=== PATIENT | female | born 1985 | race Two or more races ===

== ENCOUNTER 2017-03-07 09:25 | Inpatient (IN) | payer BC ==
[2017-03-07] MEDS ORDERED: Carboprost Tromethamine 250 MCG/1 ML Amp IM PRN (11:44)
[2017-03-07] MEDS ORDERED: Lidocaine 1% 50 ML MDV INJECT PRN (11:44)
[2017-03-07] MEDS ORDERED: Butorphanol 1 MG/ML SDV IVPUSH PRN (11:44)
[2017-03-07] MEDS ORDERED: Water For Irrigation,Sterile 1,000 ML Container IRR PRN (11:44)
[2017-03-07] MEDS ORDERED: Sodium Chloride 0.9% 10 ML Syringe FLUSH PRN (11:44)
[2017-03-07] MEDS ORDERED: Sodium Chloride 0.9% 2.5 ML Syringe FLUSH PRN (11:44)
[2017-03-07] MEDS ORDERED: Nalbuphine 10 MG/1 ML Vial IVPUSH PRN (11:44)
[2017-03-07] MEDS ORDERED: Misoprostol 200 MCG Tab PO PRN (11:44)
[2017-03-07] MEDS ORDERED: Methylergonovine 0.2 MG/1 ML Amp IM PRN (11:44)
[2017-03-07] MEDS ORDERED: Terbutaline 1 MG/ML SDV SUBCUT PRN (11:49)
[2017-03-07] MEDS ORDERED: Oxytocin/0.9 % Sodium Chloride 30 UNIT/500 ML BAG IV SCH (12:00)
[2017-03-07] MEDS: Lactated Ringers 1,000 ML IV SCH ×2 (12:15→13:52)
[2017-03-07] MEDS ORDERED: ePHEDrine 50 MG/ML SDV ONE (13:41)
[2017-03-07] MEDS ORDERED: Ropivacaine 0.2% 2 MG/ML 20 ML SDV ONE (13:42)
[2017-03-07] MEDS ORDERED: fentaNYL 100 MCG/2 ML SDV ONE (13:42)
[2017-03-07] MEDS ORDERED: Ropivacaine HCl/PF 100 ML ONE (13:42)
--- NOTE | 2017-03-07 14:24 | PCM.PRNOTE ---
- Free Text/Narrative Note: Called for a labor epidural for patient c/o labor pain. Patient identified and history reviewed. Discussed procedure and risks including bleeding, infection, nerve pain, nerve damage and unsuccessful epidural. Patient agrees. Sitting up, sterile betadine prep times 3 and sterile drape. 1% lidocaine SQ at L4 #25 Touhy advanced KRISTYN saline to approximately 5 cm. Catheter easily advanced to 10cm. No heme no paresthesia. Test dose 3 ml 1.5% lidocaine with epinephrine 1: 200,000. negative reaction. Bolus of fentanyl 100 mcg given with 3 ml 0.2% ropivicaine. ropivicaine bolus x1 of 2ml. Total 5 ml bolus.Patient reports pain relief after 2 contractions. Level noted to be T10 Epidural drip of 0.2% ropivicaine and Fentanyl 2 mcg/ml started at 8 ml/hr PCEA bolus of 4 ml every 20 minutes. Pt tolerated well pain score 7/10 to 2/10.
--- NOTE | 2017-03-07 14:27 | PCM.PREANE ---
Preanesthetic Assessment - Procedure Proposed Procedure: labor epidural - Anesthesia/Transfusion/Family Hx Anesthesia History: Prior Anesthesia Without Reaction (lasik, wisdom teeth) Family History of Anesthesia Reaction: No - Review of Systems General: No Symptoms Pulmonary: No Symptoms Cardiovascular: No Symptoms Gastrointestinal: No Symptoms Neurological: Other (hx of lower back pain on right) Other: Reports: None - Physical Assessment Pulse: 79 O2 Sat by Pulse Oximetry: 98 Respiratory Rate: 20 Blood Pressure: 112/73 Height: 1.57 m Weight: 62.596 kg ASA Class: 2 Mental Status: Alert & Oriented x3 Dentition: Reports: Normal Dentition Thyro-Mental Finger Breadths: 3 Mouth Opening Finger Breadths: 4 Lungs: Clear to Auscultation, Normal Respiratory Effort Cardiovascular: Regular Rate, Regular Rhythm - Lab Values: Laboratory Last Values WBC 6.85 K/uL (4.0-11.0) 03/07/17 12:09 RBC 4.09 M/uL (4.30-5.90) L 03/07/17 12:09 Hgb 11.5 g/dL (12.0-16.0) L 03/07/17 12:09 Hct 34.6 % (36.0-46.0) L 03/07/17 12:09 MCV 84.6 fL (80.0-98.0) 03/07/17 12:09 MCH 28.1 pg (27.0-32.0) 03/07/17 12:09 MCHC 33.2 g/dL (31.0-37.0) 03/07/17 12:09 RDW Std Deviation 41.4 fl (28.0-62.0) 03/07/17 12:09 RDW Coeff of Shantanu 14 % (11.0-15.0) 03/07/17 12:09 Plt Count 164 K/uL (150-400) 03/07/17 12:09 MPV 10.10 fL (7.40-12.00) 03/07/17 12:09 Nucleated RBC % 0.0 /100WBC 03/07/17 12:09 Nucleated RBCs # 0 K/uL 03/07/17 12:09 INR 0.94 (0.86-1.11) 03/07/17 12:09 APTT 31.4 SEC (18.6-31.3) H 03/07/17 12:09 Fibrinogen 491 mg/dL (215-411) H 03/07/17 12:09 Blood Type O POSITIVE 03/07/17 12:09 Antibody Screen NEGATIVE 03/07/17 12:09 - Allergies Allergies/Adverse Reactions: Allergies Allergy/AdvReac Type Severity Reaction Status Date / Time No Known Allergies Allergy Verified 05/21/14 15:05 - Blood Blood Available: Yes Product(s) Available: PRBC - Anesthesia Plan Pre-Op Medication Ordered: None - Acknowledgements Anesthesia Type Planned: Epidural Pt an Appropriate Candidate for the Planned Anesthesia: Yes Alternatives and Risks of Anesthesia Discussed w Pt/Guardian: Yes Pt/Guardian Understands and Agrees with Anesthesia Plan: Yes PreAnesthesia Questionnaire - CURRENT (IN HOUSE) MEDS Current Meds: Current Medications Butorphanol Tartrate (Stadol) 1 mg IVPUSH Q1H PRN PRN Reason: Pain Carboprost Tromethamine (Hemabate Ds) 250 mcg IM ASDIRECTED PRN PRN Reason: Post Hemorrhage Lactated Ringer's (Ringers, Lactated) 1,000 mls @ 150 mls/hr IV ASDIRECTED NITA Last Admin: 03/07/17 13:52 Dose: 999 mls/hr Oxytocin/Sodium Chloride (Oxytocin 30 Unit/500 Ml-Ns) 30 unit in 500 mls @ 2 mls/hr IV TITRATE NITA; 2 MUNITS/MIN PRN Reason: Protocol Last Admin: 03/07/17 12:24 Dose: 2 munits/min, 2 mls/hr Lidocaine HCl (Xylocaine 1%) 50 ml INJECT .ONCE PRN PRN Reason: Laceration repair Methylergonovine Maleate (Methergine) 0.2 mg IM ASDIRECTED PRN PRN Reason: Post Hemorrhage Misoprostol (Cytotec) 200 mcg PO .ONCE PRN PRN Reason: Post Hemorrhage Nalbuphine HCl (Nubain) 10 mg IVPUSH Q1H PRN PRN Reason: Pain (severe 7-10) Sodium Chloride (Saline Flush) 10 ml FLUSH ASDIRECTED PRN PRN Reason: Keep Vein Open Sodium Chloride (Saline Flush) 2.5 ml FLUSH ASDIRECTED PRN PRN Reason: Keep Vein Open Sterile Water (Sterile Water For Irrigation) 1,000 ml IRR ASDIRECTED PRN PRN Reason: delivery Terbutaline Sulfate (Brethine) 0.25 mg SUBCUT ASDIRECTED PRN PRN Reason: Tacysystole Discontinued Medications Ephedrine Sulfate (Ephedrine Sulfate) Confirm Administered Dose 50 mg .ROUTE .STK-MED ONE Stop: 03/07/17 13:42 Fentanyl (Sublimaze) Confirm Administered Dose 300 mcg .ROUTE .STK-MED ONE Stop: 03/07/17 13:43 Ropivacaine (Naropin 0.2%) Confirm Administered Dose 100 mls @ as directed .ROUTE .STK-MED ONE Stop: 03/07/17 13:43 Ropivacaine (Naropin 0.2%) Confirm Administered Dose 20 ml .ROUTE .STK-MED ONE Stop: 03/07/17 13:43
[2017-03-07] MEDS ORDERED: Ibuprofen 800 MG Tab PO PRN (20:14)
[2017-03-07] MEDS ORDERED: Ibuprofen 400 MG Tab PO PRN (20:14)
[2017-03-07] MEDS ORDERED: Acetaminophen 500 MG Tab PO PRN ×2 (20:14)
[2017-03-07] MEDS ORDERED: Docusate Sodium 100 MG Cap PO PRN (20:14)
[2017-03-07] MEDS ORDERED: Witch Hazel Medicated Pads 40/Jar TOP PRN (20:14)
[2017-03-07] MEDS ORDERED: Lanolin 100% Cream 7 GM Tube TOP PRN (20:14)
[2017-03-07] MEDS ORDERED: Bisacodyl 10 MG Supp RECTAL PRN (20:14)
[2017-03-07] MEDS ORDERED: oxyCODONE 5 MG Tab PO PRN (20:14)
[2017-03-07] MEDS ORDERED: Benzocaine/Menthol 20%-0.5% Spray 78 GM Cannister TOP PRN (20:14)
--- NOTE | 2017-03-08 06:30 | PCM.PNPP ---
- General Info Date of Service: 03/08/17 Admission Dx/Problem (Free Text): 32 yo P2 s/p , PPD1 Subjective Update: Patient seen at bedside , denies any complains . Normal lochia Functional Status: Reports: Pain Controlled, Tolerating Diet, Ambulating, Urinating - Review of Systems General: Reports: No Symptoms HEENT: Reports: No Symptoms Pulmonary: Reports: No Symptoms Cardiovascular: Reports: No Symptoms Gastrointestinal: Reports: No Symptoms Genitourinary: Reports: No Symptoms Musculoskeletal: Reports: No Symptoms Skin: Reports: No Symptoms Neurological: Reports: No Symptoms Psychiatric: Reports: No Symptoms - General Info Date of Service: 03/08/17 - Patient Data Vital Signs - Most Recent: Last Vital Signs Temp Pulse 79 03/07/17 14:27 Resp 20 03/07/17 14:27 BP 112/73 03/07/17 14:27 Pulse Ox 98 03/07/17 14:27 Weight - Most Recent: 62.596 kg Lab Results - Last 24 Hours: Laboratory Results - last 24 hr 03/07/17 03/07/17 03/07/17 Range/Units 12:09 12:09 12:09 WBC 6.85 (4.0-11.0) K/uL RBC 4.09 L (4.30-5.90) M/uL Hgb 11.5 L (12.0-16.0) g/dL Hct 34.6 L (36.0-46.0) % MCV 84.6 (80.0-98.0) fL MCH 28.1 (27.0-32.0) pg MCHC 33.2 (31.0-37.0) g/dL RDW Std Deviation 41.4 (28.0-62.0) fl RDW Coeff of Shantanu 14 (11.0-15.0) % Plt Count 164 (150-400) K/uL MPV 10.10 (7.40-12.00) fL Nucleated RBC % 0.0 /100WBC Nucleated RBCs # 0 K/uL INR 0.94 (0.86-1.11) APTT 31.4 H (18.6-31.3) SEC Fibrinogen 491 H (215-411) mg/dL Blood Type O POSITIVE Antibody Screen NEGATIVE 03/07/17 03/07/17 03/08/17 Range/Units 18:56 18:56 06:16 WBC 8.12 (4.0-11.0) K/uL RBC 3.81 L (4.30-5.90) M/uL Hgb 10.7 L 10.3 L (12.0-16.0) g/dL Hct 32.6 L 31.0 L (36.0-46.0) % MCV 85.6 (80.0-98.0) fL MCH 28.1 (27.0-32.0) pg MCHC 32.8 (31.0-37.0) g/dL RDW Std Deviation 42.6 (28.0-62.0) fl RDW Coeff of Shantanu 14 (11.0-15.0) % Plt Count 138 L (150-400) K/uL MPV 9.80 (7.40-12.00) fL Nucleated RBC % 0.0 /100WBC Nucleated RBCs # 0 K/uL INR 0.98 (0.86-1.11) APTT 32.7 H (18.6-31.3) SEC Fibrinogen 454 H (215-411) mg/dL Blood Type Antibody Screen Med Orders - Current: Current Medications Acetaminophen (Tylenol Extra Strength) 500 mg PO Q4H PRN PRN Reason: Pain Acetaminophen (Tylenol Extra Strength) 1,000 mg PO Q4H PRN PRN Reason: Pain Benzocaine/Menthol (Dermoplast Pain Relief 20%-0.5% [place]) 78 gm TOP ASDIRECTED PRN PRN Reason: Perineal Comfort Measure Bisacodyl (Dulcolax) 10 mg RECTAL .ONCE PRN PRN Reason: Constipation Carboprost Tromethamine (Hemabate Ds) 250 mcg IM ASDIRECTED PRN PRN Reason: Post Hemorrhage Docusate Sodium (Colace) 100 mg PO BID PRN PRN Reason: Constipation Emollient Ointment (Lansinoh Hpa) 0 gm TOP ASDIRECTED PRN PRN Reason: Sore Nipples Lactated Ringer's (Ringers, Lactated) 1,000 mls @ 150 mls/hr IV ASDIRECTED NITA Last Admin: 03/07/17 13:52 Dose: 999 mls/hr Oxytocin/Sodium Chloride (Oxytocin 30 Unit/500 Ml-Ns) 30 unit in 500 mls @ 2 mls/hr IV TITRATE NITA; 2 MUNITS/MIN PRN Reason: Protocol Last Titration: 03/07/17 18:00 Dose: 1 munits/min, 1 mls/hr Ibuprofen (Motrin) 400 mg PO Q4H PRN PRN Reason: Pain Ibuprofen (Motrin) 800 mg PO Q6H PRN PRN Reason: Pain Lidocaine HCl (Xylocaine 1%) 50 ml INJECT .ONCE PRN PRN Reason: Laceration repair Methylergonovine Maleate (Methergine) 0.2 mg IM ASDIRECTED PRN PRN Reason: Post Hemorrhage Misoprostol (Cytotec) 200 mcg PO .ONCE PRN PRN Reason: Post Hemorrhage Oxycodone HCl (Oxycodone) 5 mg PO Q2H PRN PRN Reason: Pain Sodium Chloride (Saline Flush) 10 ml FLUSH ASDIRECTED PRN PRN Reason: Keep Vein Open Sodium Chloride (Saline Flush) 2.5 ml FLUSH ASDIRECTED PRN PRN Reason: Keep Vein Open Sterile Water (Sterile Water For Irrigation) 1,000 ml IRR ASDIRECTED PRN PRN Reason: delivery Terbutaline Sulfate (Brethine) 0.25 mg SUBCUT ASDIRECTED PRN PRN Reason: Tacysystole [place] (Tucks) 1 pad TOP ASDIRECTED PRN PRN Reason: comfort care Discontinued Medications Butorphanol Tartrate (Stadol) 1 mg IVPUSH Q1H PRN PRN Reason: Pain Ephedrine Sulfate (Ephedrine Sulfate) Confirm Administered Dose 50 mg .ROUTE .STK-MED ONE Stop: 03/07/17 13:42 Fentanyl (Sublimaze) Confirm Administered Dose 300 mcg .ROUTE .STK-MED ONE Stop: 03/07/17 13:43 Ropivacaine (Naropin 0.2%) Confirm Administered Dose 100 mls @ as directed .ROUTE .STK-MED ONE Stop: 03/07/17 13:43 Nalbuphine HCl (Nubain) 10 mg IVPUSH Q1H PRN PRN Reason: Pain (severe 7-10) Ropivacaine (Naropin 0.2%) Confirm Administered Dose 20 ml .ROUTE .STK-MED ONE Stop: 03/07/17 13:43 - Infant Interaction Infant Disposition, : at Bedside Infant Interaction: Holding Support Person: - Recovery Exam Fundal Tone: Firm Fundal Level: At Umbilicus Fundal Placement: Midline Lochia Amount: Moderate Lochia Color: Rubra/Red Episiotomy/Laceration: Approximated Bladder Status: Voiding Urinary Elimination: Voided - Exam General: Alert Lungs: Clear to Auscultation, Normal Respiratory Effort Cardiovascular: Regular Rate, Regular Rhythm GI/Abdominal Exam: Normal Bowel Sounds Extremities: Normal Inspection Psy/Mental Status: Alert - Problem List & Annotations (1) Vaginal delivery SNOMED Code(s): 344048346 Code(s): O80 - ENCOUNTER FOR FULL-TERM UNCOMPLICATED DELIVERY Status: Acute Current Visit: Yes - Problem List Review Problem List Initiated/Reviewed/Updated: Yes - My Orders Last 24 Hours: My Active Orders 03/07/17 11:44 Patient Status [ADT] Routine Heart Tones [RC] CONTINUOUS Non Stress Test [RC] PER UNIT ROUTINE Notify Provider [RC] PRN Vaginal Exam [RC] PRN Vital Signs [RC] PER UNIT ROUTINE Carboprost Tromethamine [Hemabate DS] 250 mcg IM ASDIRECTED PRN Lidocaine 1% [Xylocaine 1%] 50 ml INJECT .ONCE PRN Methylergonovine [Methergine] 0.2 mg IM ASDIRECTED PRN Misoprostol [Cytotec] 200 mcg PO .ONCE PRN Sodium Chloride 0.9% [Saline Flush] 10 ml FLUSH ASDIRECTED PRN Sodium Chloride 0.9% [Saline Flush] 2.5 ml FLUSH ASDIRECTED PRN Water For Irrigation,Sterile [Sterile Water for Irrigation] 1,000 ml IRR ASDIRECTED PRN Peripheral IV Insertion Adult [OM.PC] Routine Resuscitation Status Routine 03/07/17 11:45 Lactated Ringers [Ringers, Lactated] 1,000 ml IV ASDIRECTED 03/07/17 11:49 Bedrest Bathroom Privileges [RC] ASDIRECTED Communication Order [RC] ASDIRECTED Communication Order [RC] ASDIRECTED Notify Provider [RC] PRN Oxygen Therapy [RC] ASDIRECTED Vaginal Exam [RC] PRN Vital Signs [RC] PER UNIT ROUTINE Terbutaline [Brethine] 0.25 mg SUBCUT ASDIRECTED PRN 03/07/17 12:00 Oxytocin/0.9 % Sodium Chloride [Oxytocin 30 Unit/500 ML-NS] 30 unit in 500 ml IV TITRATE Medication Administration Instruction [OM.PC] Q3H 03/07/17 20:14 Patient Status [ADT] Routine May Shower [RC] ASDIRECTED Up ad Peyton [RC] ASDIRECTED Vital Signs [RC] PER UNIT ROUTINE Acetaminophen [Tylenol Extra Strength] 1,000 mg PO Q4H PRN Acetaminophen [Tylenol Extra Strength] 500 mg PO Q4H PRN Benzocaine/Menthol [Dermoplast Pain Relief 20%-0.5% [place]] 78 gm TOP ASDIRECTED PRN Bisacodyl [Dulcolax] 10 mg RECTAL .ONCE PRN Docusate Sodium [Colace] 100 mg PO BID PRN Ibuprofen [Motrin] 400 mg PO Q4H PRN Ibuprofen [Motrin] 800 mg PO Q6H PRN Lanolin [Lansinoh HPA] See Dose Instructions TOP ASDIRECTED PRN [place] [Tucks] 1 pad TOP ASDIRECTED PRN oxyCODONE 5 mg PO Q2H PRN Assess Lochia [WOMSER] Per Unit Routine Assess Uterine Involution [WOMSER] Per Unit Routine Peripheral IV Discontinue [OM.PC] Routine - Assessment Assessment:: 32 yo P2 s/p , PPD1 , stable - Plan Plan:: Continue regular diet Pain control Discharge home today
--- NOTE | 2017-03-08 13:53 | OR ---
SURGEON: DARWIN CHIN DATE OF PROCEDURE: 03/07/2017 PREOPERATIVE DIAGNOSES: 1. A 32-year-old 3, para 1-0-1-1, at 38 weeks and 6 days, admitted for induction of labor secondary to third trimester bleeding. 2. Group B Streptococcus is negative. POSTOPERATIVE DIAGNOSES: 1. Status post spontaneous vaginal delivery. 2. Placental abruption. 3. Group B Streptococcus is negative. ESTIMATED BLOOD LOSS: 300. ANESTHESIA: Epidural. FINDINGS: A live male delivered at 1909, weight was 3,410 grams, score was 8 and 9. Three-vessel cord was noted. On inspection of the placenta, there was about 5-10% abruption. A second-degree laceration was repaired also. HISTORY: The patient is a 32-year-old, G3, P1-0-1-1 at 38 weeks and 6 days, who presented to the triage complaining of vaginal spotting and bleeding that soaked a pad. The patien , reported decreased movement. As a result, the patient was examined and found to have some mild spotting in the posterior vaginal fornix. The heart tones was Category 1. The patient was examined and found to be 2 cm dilated. As a result, patient was kept for induction of labor, and serial coags were done. The patient had the Roldan bulb placed. After the Roldan bulb, patient was 3 cm dilated. The patient was then reevaluated and found to be 5 cm dilated, 50% effaced, and -2 station. AROM was done, which showed bloody fluid. Subsequently, the patient became fully dilated. PROCEDURE IN DETAIL: When patient was fully dilated, the patient was encouraged to push. The patient had good pushing effort, and delivered the head, followed by the anterior shoulder and then the posterior shoulder, followed by the body. The was then placed on the abdomen of the mother and suctioned cleaned. The cord was clamped x2, and the placenta was then delivered, and a gush of blood was noted with the delivery of the placenta. The uterus was then massaged. The perineum was inspected and assessed to have a second-degree laceration, which was sutured with 2-0 Caprosyn. The perineum was then inspected again and found to be hemostatic.The instrument and pad counts were correct x2. ABA LANCASTER /[id number] LYDIA
[2017-03-08 20:17] VITALS: BP 100/62
== END 2017-03-08 22:05 | disposition home or self-care (01) | DRG 560 ==
LOC: MW.OBCHECK 09:25 → MW.OB 09:28 → MW.OBCHECK 11:44 → OBSVTOIN 19:09 → MW.OB 23:30
PROVIDERS: ADMIT Obstetrics & Gynecology; ATTEND Obstetrics & Gynecology
PROC: 10E0XZZ Delivery of Products of Conception, External Approach (ICD-10-PCS; principal; 2017-03-07)
PROC: 0U7C7ZZ Dilation of Cervix, Via Natural or Artificial Opening (ICD-10-PCS; 2017-03-07)
PROC: 3E0P3VZ Introduction of Hormone into Female Reproductive, Percutaneous Approach (ICD-10-PCS; 2017-03-07)
PROC: 0KQM0ZZ Repair Perineum Muscle, Open Approach (ICD-10-PCS; 2017-03-07)
PROC: 10907ZC Drainage of Amniotic Fluid, Therapeutic from Products of Conception, Via Natural or Artificial Opening (ICD-10-PCS; 2017-03-07)
DX: O45.93 Premature separation of placenta, unspecified, third trimester (principal); O70.1 Second degree perineal laceration during delivery; Z3A.38 38 weeks gestation of pregnancy; Z37.0 Single live birth
CPT/HCPCS: 01967; 36415; 59025; 59409; 85014; 85018; 85027; 85384; 85610; 85730; 86850; 86900; 86901; 88307; J2590; J7120

== ENCOUNTER 2017-04-18 07:00 | Emergency (ER) | payer BC ==
[2017-04-18] MEDS ORDERED: Sodium Chloride 0.9% 1,000 ML IV ONE (07:22)
[2017-04-18] MEDS ORDERED: Sodium Chloride 0.9% 2.5 ML Syringe FLUSH PRN (07:22)
[2017-04-18] MEDS ORDERED: Morphine 2 MG/ML Syringe IVPUSH ONE ×2 (07:22→09:36)
[2017-04-18] MEDS ORDERED: Ondansetron 4 MG/2 ML SDV IVPUSH ONE (07:22)
[2017-04-18] MEDS ORDERED: Sodium Chloride 0.9% 10 ML Syringe FLUSH PRN (07:22)
--- NOTE | 2017-04-18 07:58 | EDM.PDOC ---
ED HPI GENERAL MEDICAL PROBLEM - General Chief Complaint: Abdominal Pain Stated Complaint: ABD PAIN Time Seen by Provider: 04/18/17 07:15 Source of Information: Reports: Patient History Limitations: Reports: No Limitations - History of Present Illness INITIAL COMMENTS - FREE TEXT/NARRATIVE: History of present illness: []Patient ate a large meal last night at 7 PM and then drinks soda which she normally doesn't and shortly experienced right-sided abdominal pain. Pain radiating around her right upper flank and was cramping. She was able to sleep last night but awoke early to feed her baby and the pain began again. She denies any vomiting but feels nauseated. Review of systems: As per history of present illness and below otherwise all systems reviewed and negative. Past medical history: As per history of present illness and as reviewed below otherwise noncontributory. Surgical history: As per history of present illness and as reviewed below otherwise noncontributory. Social history: No reported history of drug or alcohol abuse. Family history: As per history of present illness and as reviewed below otherwise noncontributory. Physical exam: General: Well developed, well nourished in NAD HEENT: Atraumatic, normocephalic, pupils reactive, negative for conjunctival pallor or scleral icterus, mucous membranes moist, throat clear, neck supple, nontender, trachea midline. Lungs: Clear to auscultation, breath sounds equal bilaterally, chest nontender. Heart: S1S2, regular, negative for clicks, rubs, or JVD. Abdomen: Soft, nondistended, nontender. Negative for masses or hepatosplenomegaly. Negative for costovertebral tenderness. Pelvis: Stable nontender. Genitourinary: Deferred. Rectal: Deferred. Extremities: Atraumatic, negative for cords or calf pain. Neurovascular unremarkable. Neuro: Awake, alert, oriented. Cranial nerves II through XII unremarkable. Cerebellum unremarkable. Motor and sensory unremarkable throughout. Exam nonfocal. Diagnostics: []Labs normal ultrasound gallbladder shows cholelithiasis no signs of cholecystitis Therapeutics: []IV hydration and morphine Zofran for pain and nausea Impression: []Cholelithiasis Plan: []Follow-up with general surgeon, [place] and Zofran for pain and nausea. Return if symptoms worsen or change. Definitive disposition and diagnosis as appropriate pending reevaluation and review of above. Right Lower Abdomen Pain Score (Numeric/FACES): 10 - Related Data Allergies Allergy/AdvReac Type Severity Reaction Status Date / Time No Known Allergies Allergy Verified 04/18/17 07:11 Home Meds: Home Meds . 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 - Infectious Disease History Infectious Disease History: Reports: Chicken Pox, Measles - Past Surgical History HEENT Surgical History: Reports: LASIK, Other (See Below) Other HEENT Surgeries/Procedures: wisdom teeth extraction Social & Family History - Family History Cardiac: Reports: Hypertension Respiratory: Reports: Asthma : Reports: Renal Calculus Neurological: Reports: CVA Endocrine/Metabolic: Reports: Diabetes, Type I Oncologic: Reports: Breast - Tobacco Use Smoking Status *Q: Never Smoker Second Hand Smoke Exposure: No - Caffeine Use Caffeine Use: Reports: Soda Other Caffeine Use: occasional Caffeine Use Comment: rare - Recreational Drug Use Recreational Drug Use: No ED ROS GENERAL - Review of Systems Review Of Systems: See Below (See history of present illness) ED EXAM, GI/ABD - Physical Exam Exam: See Below (See history of present illness) Course - Vital Signs Last Recorded V/S: Last Vital Signs Temp 97.3 F 04/18/17 07:07 Pulse 74 04/18/17 08:44 Resp 16 04/18/17 08:44 BP 114/64 04/18/17 08:44 Pulse Ox 97 04/18/17 08:44 - Orders/Labs/Meds Orders: Active Orders 24 hr Category Date Time Status Abdomen Ltd [US] Stat Exams 04/18/17 08:31 Taken Sodium Chloride 0.9% [Saline Flush] Med 04/18/17 07:22 Active 10 ml FLUSH ASDIRECTED PRN Sodium Chloride 0.9% [Saline Flush] Med 04/18/17 07:22 Active 2.5 ml FLUSH ASDIRECTED PRN Saline Lock Insert [OM.PC] Stat Oth 04/18/17 07:21 Ordered Medication Orders Sodium Chloride (Saline Flush) 10 ml FLUSH ASDIRECTED PRN PRN Reason: Keep Vein Open Sodium Chloride (Saline Flush) 2.5 ml FLUSH ASDIRECTED PRN PRN Reason: Keep Vein Open Labs: Laboratory Tests 04/18/17 04/18/1704/18/17 Range/Units 07:30 07:30 07:45 WBC 7.85 (4.0-11.0) K/uL RBC 5.13 (4.30-5.90) M/uL Hgb 14.2 (12.0-16.0) g/dL Hct 42.0 (36.0-46.0) % MCV 81.9 (80.0-98.0) fL MCH 27.7 (27.0-32.0) pg MCHC 33.8 (31.0-37.0) g/dL RDW Std Deviation 42.0 (28.0-62.0) fl RDW Coeff of Shantanu 14 (11.0-15.0) % Plt Count 168 (150-400) K/uL MPV 10.00 (7.40-12.00) fL Neut % (Auto) 65.8 (48.0-80.0) % Lymph % (Auto) 27.0 (16.0-40.0) % [place] % (Auto) 6.0 (0.0-15.0) % Eos % (Auto) 1.1 (0.0-7.0) % Baso % (Auto) 0.1 (0.0-1.5) % Neut # (Auto) 5.2 (1.4-5.7) K/uL Lymph # (Auto) 2.1 (0.6-2.4) K/uL [place] # (Auto) 0.5 (0.0-0.8) K/uL Eos # (Auto) 0.1 (0.0-0.7) K/uL Baso # (Auto) 0.0 (0.0-0.1) K/uL Nucleated RBC % 0.0 /100WBC Nucleated RBCs # 0 K/uL Sodium (136-146) mmol/L Potassium (3.5-5.1) mmol/L Chloride (98-110) mmol/L Carbon Dioxide (21-31) mmol/L BUN (6.0-23.0) mg/dL Creatinine (0.6-1.5) mg/dL Est Cr Clr Drug Dosing mL/min Estimated GFR (MDRD) ml/min Glucose (60-110) mg/dL Calcium (8.8-10.8) mg/dL Total Bilirubin (0.1-1.5) mg/dL AST (5-40) IU/L ALT (8-54) IU/L Alkaline Phosphatase (40-150) Total Protein (6.0-8.0) g/dL Albumin (3.5-5.0) g/dL Globulin (2.0-3.5) g/dL Albumin/Globulin Ratio (1.3-2.8) Lipase (7-80) U/L Urine Color YELLOW Urine Appearance SLT CLOUDY Urine pH 7.0 (5.0-8.0) Ur Specific [place] 1.015 (1.001-1.035) Urine Protein NEGATIVE (NEGATIVE) mg/dL Urine Glucose (UA) NEGATIVE (NEGATIVE) mg/dL Urine Ketones NEGATIVE (NEGATIVE) mg/dL Urine Occult Blood TRACE-INTACT (NEGATIVE) Urine Nitrite NEGATIVE (NEGATIVE) Urine Bilirubin NEGATIVE (NEGATIVE) Urine Urobilinogen 0.2 (<2.0) EU/dL Ur Leukocyte Esterase TRACE (NEGATIVE) Urine RBC 0-3 (0-2/HPF) Urine WBC 0-3 (0-5/HPF) Ur Epithelial Cells OCCASIONAL (NONE-FEW) Urine Bacteria FEW (NEGATIVE) Urine HCG, Qual NEGATIVE (NEGATIVE) 04/18/17 Range/Units 07:45 WBC (4.0-11.0) K/uL RBC (4.30-5.90) M/uL Hgb (12.0-16.0) g/dL Hct (36.0-46.0) % MCV (80.0-98.0) fL MCH (27.0-32.0) pg MCHC (31.0-37.0) g/dL RDW Std Deviation (28.0-62.0) fl RDW Coeff of Shantanu (11.0-15.0) % Plt Count (150-400) K/uL MPV (7.40-12.00) fL Neut % (Auto) (48.0-80.0) % Lymph % (Auto) (16.0-40.0) % [place] % (Auto) (0.0-15.0) % Eos % (Auto) (0.0-7.0) % Baso % (Auto) (0.0-1.5) % Neut # (Auto) (1.4-5.7) K/uL Lymph # (Auto) (0.6-2.4) K/uL [place] # (Auto) (0.0-0.8) K/uL Eos # (Auto) (0.0-0.7) K/uL Baso # (Auto) (0.0-0.1) K/uL Nucleated RBC % /100WBC Nucleated RBCs # K/uL Sodium 137 (136-146) mmol/L Potassium 4.0 (3.5-5.1) mmol/L Chloride 104 (98-110) mmol/L Carbon Dioxide 21 (21-31) mmol/L BUN 11 (6.0-23.0) mg/dL Creatinine 0.7 (0.6-1.5) mg/dL Est Cr Clr Drug Dosing 92.94 mL/min Estimated GFR (MDRD) > 60.0 ml/min Glucose 129 H (60-110) mg/dL Calcium 9.9 (8.8-10.8) mg/dL Total Bilirubin 0.4 (0.1-1.5) mg/dL AST 17 (5-40) IU/L ALT 18 (8-54) IU/L Alkaline Phosphatase 103 (40-150) Total Protein 8.3 H (6.0-8.0) g/dL Albumin 4.6 (3.5-5.0) g/dL Globulin 3.7 H (2.0-3.5) g/dL Albumin/Globulin Ratio 1.2 L (1.3-2.8) Lipase 24 (7-80) U/L Urine Color Urine Appearance Urine pH (5.0-8.0) Ur Specific [place] (1.001-1.035) Urine Protein (NEGATIVE) mg/dL Urine Glucose (UA) (NEGATIVE) mg/dL Urine Ketones (NEGATIVE) mg/dL Urine Occult Blood (NEGATIVE) Urine Nitrite (NEGATIVE) Urine Bilirubin (NEGATIVE) Urine Urobilinogen (<2.0) EU/dL Ur Leukocyte Esterase (NEGATIVE) Urine RBC (0-2/HPF) Urine WBC (0-5/HPF) Ur Epithelial Cells (NONE-FEW) Urine Bacteria (NEGATIVE) Urine HCG, Qual (NEGATIVE) Meds: Medications Generic Name Dose Route Start Last Admin Trade Name Freq PRN Reason Stop Dose Admin Sodium Chloride 10 ml 04/18/17 07:22 Saline Flush FLUSH ASDIRECTED PRN Keep Vein Open Sodium Chloride 2.5 ml 04/18/17 07:22 Saline Flush FLUSH ASDIRECTED PRN Keep Vein Open Discontinued Medications Generic Name Dose Route Start Last Admin Trade Name [place] PRN Reason Stop Dose Admin Sodium Chloride 1,000 mls @ 999 mls/hr 04/18/17 07:22 04/18/17 07:51 Normal Saline IV 04/18/17 08:22 999 mls/hr .Bolus ONE Administration Morphine Sulfate 2 mg 04/18/17 07:22 04/18/17 07:51 Morphine IVPUSH 04/18/17 07:23 2 mg ONETIME ONE Administration Ondansetron HCl 4 mg 04/18/17 07:22 04/18/17 07:51 Zofran IVPUSH 04/18/17 07:23 4 mg ONETIME ONE Administration Departure - Departure Time of Disposition: 09:39 Disposition: Home, Self-Care 01 Condition: Good Clinical Impression: Cholelithiasis Qualifiers: Cholelithiasis location: gallbladder Cholecystitis presence: without cholecystitis Biliary obstruction: without biliary obstruction Qualified Code(s) : K80.20 - Calculus of gallbladder without cholecystitis without obstruction - Discharge Information Referrals: Nic Huynh [Primary Care Provider] - Forms: ED Department Discharge Additional Instructions: The following information is given to patients seen in the emergency department who are being discharged to home. This information is to outline your options for follow-up care. We provide all patients seen in our emergency department with a follow-up referral. The need for follow-up, as well as the timing and circumstances, are variable depending upon the specifics of your emergency department visit. If you don't have a primary care physician on staff, we will provide you with a referral. We always advise you to contact your personal physician following an emergency department visit to inform them of the circumstance of the visit and for follow-up with them and/or the need for any referrals to a consulting specialist. The emergency department will also refer you to a specialist when appropriate. This referral assures that you have the opportunity for follow-up care with a specialist. All of these measure are taken in an effort to provide you with optimal care, which includes your follow-up. Under all circumstances we always encourage you to contact your private physician who remains a resource for coordinating your care. When calling for follow-up care, please make the office aware that this follow-up is from your recent emergency room visit. If for any reason you are refused follow-up, please contact the [facility] Emergency Department at and asked to speak to the emergency department charge nurse. Radha Herrera for nausea follow-up with general surgery. Return if fevers occur , symptoms worsen or change - My Orders Last 24 Hours: My Active Orders 04/18/17 07:21 Saline Lock Insert [OM.PC] Stat 04/18/17 07:22 Sodium Chloride 0.9% [Saline Flush] 10 ml FLUSH ASDIRECTED PRN Sodium Chloride 0.9% [Saline Flush] 2.5 ml FLUSH ASDIRECTED PRN 04/18/17 08:31 Abdomen Ltd [US] Stat - Assessment/Plan Last 24 Hours: My Active Orders 04/18/17 07:21 Saline Lock Insert [OM.PC] Stat 04/18/17 07:22 Sodium Chloride 0.9% [Saline Flush] 10 ml FLUSH ASDIRECTED PRN Sodium Chloride 0.9% [Saline Flush] 2.5 ml FLUSH ASDIRECTED PRN 04/18/17 08:31 Abdomen Ltd [US] Stat
[2017-04-18 08:27] LABS: CHLORIDE,CL 104 mmol/L (98-110); SODIUM,NA 137 mmol/L (136-146)
[2017-04-18] MEDS ORDERED: Morphine 4 MG/ML Syringe IVPUSH ONE (09:42)
[2017-04-18 10:25] VITALS: BP 127/87
--- NOTE | 2017-04-19 17:46 | US ---
EXAM DATE: 04/18/17 PATIENT'S AGE: 32 Patient: SHELLY CAMPOS Facility: [place], [place] Site . Site : [id number] Study: US Abdomen [id number] 9:24:33 AM Ordering Physician: Joe Bonilla Final Report: INDICATION: Right upper quadrant pain. Technique: Abdominal limited ultrasound. Findings: Pancreas is more hypoechoic than typical which is likely normal variant. Pancreas otherwise normal. Multiple small stones in the dependent aspect of a moderately distended gallbladder. Gallbladder wall normal. No sonographic Carter sign. No pericholecystic fluid. Common bile duct measures 1.1 mm which is normal. Right kidney measures 10.0 cm and is negative for hydronephrosis. Liver is negative for mass or bile duct dilatation. Remainder negative. Impression: Cholelithiasis. Moderately distended gallbladder. No sonographic evidence of cholecystitis or biliary dilatation. Other findings as above. Dictated by Jose Pang MD @ Apr 18 2017 9:30AM (Electronic Signature) Report Signed by Proxy. LYDIA
== END 2017-04-18 10:23 | disposition home or self-care (01) ==
LOC: MW.ED 07:00
DX: K80.20 Calculus of gallbladder without cholecystitis without obstruction (principal)
CPT/HCPCS: 36415; 76705; 80053; 81001; 81025; 83690; 85025; 96361; 96374; 96375; 96376; 99284; J2270; J2405; J7040; 99283

== ENCOUNTER 2020-03-07 06:03 | Inpatient (IN) | payer BC ==
[2020-03-07] MEDS ORDERED: Tranexamic Acid 1,000 MG in Sodium Chloride 0.9% 100 ML IV PRN (06:39)
[2020-03-07] MEDS ORDERED: Water For Irrigation,Sterile 1,000 ML Container IRR PRN (06:39)
[2020-03-07] MEDS ORDERED: Sodium Chloride 0.9% 10 ML Syringe FLUSH PRN (06:39)
[2020-03-07] MEDS ORDERED: Sodium Chloride 0.9% 2.5 ML Syringe FLUSH PRN (06:39)
[2020-03-07] MEDS ORDERED: Carboprost Tromethamine 250 MCG/1 ML Amp IM PRN (06:39)
[2020-03-07] MEDS ORDERED: Sodium Chloride 0.9% 10 ML SDV IV PRN (06:39)
[2020-03-07] MEDS ORDERED: Misoprostol 200 MCG Tab PO PRN (06:39)
[2020-03-07] MEDS ORDERED: Methylergonovine 0.2 MG/1 ML Amp IM PRN (06:39)
[2020-03-07] MEDS ORDERED: Lidocaine 1% 50 ML MDV INJECT PRN (06:39)
[2020-03-07] MEDS ORDERED: Butorphanol 1 MG/ML SDV IVPUSH PRN (06:39)
[2020-03-07] MEDS ORDERED: Nalbuphine 10 MG/1 ML Vial IVPUSH PRN (06:39)
[2020-03-07] MEDS ORDERED: Lactated Ringers 1,000 ML IV SCH (06:45)
[2020-03-07] MEDS ORDERED: Oxytocin/0.9 % Sodium Chloride 30 UNIT/500 ML BAG IV SCH (06:45)
[2020-03-07] MEDS ORDERED: Ropivacaine HCl/PF 100 ML ONE (07:52)
--- NOTE | 2020-03-07 08:53 | PCM.PREANE ---
Preanesthetic Assessment - Anesthesia/Transfusion/Family Hx Anesthesia History: Prior Anesthesia Without Reaction Transfusion History: No Prior Transfusion(s) - Review of Systems General: No Symptoms Pulmonary: Other (symptomatic from seasonal allergies) Cardiovascular: No Symptoms Gastrointestinal: No Symptoms Neurological: No Symptoms Other: Reports: None - Physical Assessment NPO Status Date: 03/07/20 NPO Status Time: 08:55 Height: 1.57 m Weight: 63.503 kg ASA Class: 2 Mental Status: Alert & Oriented x3 Airway Class: Mallampati = 2 Dentition: Reports: Normal Dentition Thyro-Mental Finger Breadths: 3 Mouth Opening Finger Breadths: 3 ROM/Head Extension: Full Lungs: Clear to Auscultation, Normal Respiratory Effort Cardiovascular: Regular Rate, Regular Rhythm - Lab Values: Laboratory Last Values WBC 7.82 K/uL (4.0-11.0) 03/07/20 06:25 RBC 4.53 M/uL (4.30-5.90) 03/07/20 06:25 Hgb 13.2 g/dL (12.0-16.0) 03/07/20 06:25 Hct 39.6 % (36.0-46.0) 03/07/20 06:25 MCV 87.4 fL (80.0-98.0) 03/07/20 06:25 MCH 29.1 pg (27.0-32.0) 03/07/20 06:25 MCHC 33.3 g/dL (31.0-37.0) 03/07/20 06:25 RDW Std Deviation 66.4 fl (28.0-62.0) H 03/07/20 06:25 RDW Coeff of Shantanu 21 % (11.0-15.0) H 03/07/20 06:25 Plt Count 150 K/uL (150-400) 03/07/20 06:25 MPV 10.30 fL (7.40-12.00) 03/07/20 06:25 Nucleated RBC % 0.0 /100WBC 03/07/20 06:25 Nucleated RBCs # 0 K/uL 03/07/20 06:25 SARS-CoV-2 RNA (DHEERAJ) NEGATIVE (NEGATIVE) 03/07/20 06:35 Blood Type O POSITIVE 03/07/20 06:25 Antibody Screen NEGATIVE 10/29/20 06:25 - Allergies Allergies/Adverse Reactions: Allergies Allergy/AdvReac Type Severity Reaction Status Date / Time grape Allergy Airway Verified 03/07/20 08:04 Tightness watermelon Allergy Airway Verified 03/07/20 08:04 Tightness - Acknowledgements Anesthesia Type Planned: Epidural (The patient understands and accepts the anesthetic risks and benefits of epidural. All questions answered. She agrees to proceed. consent signed. 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 Musculoskeletal History: Reports: None Neurological History: Reports: None Psychiatric History: Reports: None Endocrine/Metabolic History: Reports: None Hematologic History: Reports: None - Infectious Disease History Infectious Disease History: Reports: Chicken Pox - Past Surgical History HEENT Surgical History: Reports: LASIK, Other (See Below) Other HEENT Surgeries/Procedures: wisdom teeth extraction Cardiovascular Surgical History: Reports: None - SUBSTANCE USE Tobacco Use Status *Q: Never Tobacco User Second Hand Smoke Exposure: No Recreational Drug Use History: No - HOME MEDS Home Medications: Home Meds Pnv No.95/Ferrous Fum/Folic AC [ Tablet] 1 each PO 03/07/20 [History] - CURRENT (IN HOUSE) MEDS Current Meds: Current Medications Butorphanol Tartrate (Stadol) 1 mg IVPUSH Q1H PRN PRN Reason: Pain Carboprost Tromethamine (Hemabate Ds) 250 mcg IM ASDIRECTED PRN PRN Reason: Post Hemorrhage Oxytocin/Sodium Chloride (Oxytocin 30 Unit/500 Ml-Ns) 30 unit in 500 mls @ 999 mls/hr IV TITRATE NITA Tranexamic Acid 1,000 mg/ (Sodium Chloride) 110 mls @ 660 mls/hr IV ONETIME PRN PRN Reason: Bleeding Lactated Ringer's (Ringers, Lactated) 1,000 mls @ 150 mls/hr IV ASDIRECTED NITA Last Infusion: 03/07/20 08:08 Dose: 150 mls/hr Documented by: Lidocaine HCl (Xylocaine 1%) 50 ml INJECT ONETIME PRN PRN Reason: Laceration repair Methylergonovine Maleate (Methergine) 0.2 mg IM ASDIRECTED PRN PRN Reason: Post Hemorrhage Misoprostol (Cytotec) 200 mcg PO ONETIME PRN PRN Reason: Post Hemorrhage Nalbuphine HCl (Nubain) 10 mg IVPUSH Q1H PRN PRN Reason: Pain (severe 7-10) Sodium Chloride (Saline Flush) 10 ml FLUSH ASDIRECTED PRN PRN Reason: Keep Vein Open Sodium Chloride (Saline Flush) 2.5 ml FLUSH ASDIRECTED PRN PRN Reason: Keep Vein Open Sodium Chloride (Normal Saline) 10 ml IV ASDIRECTED PRN PRN Reason: IV Use Sterile Water (Sterile Water For Irrigation) 1,000 ml IRR ASDIRECTED PRN PRN Reason: delivery Discontinued Medications Ropivacaine (Naropin 0.2%) Confirm Administered Dose 100 mls @ as directed .ROUTE .[facility] ONE Stop: 03/07/20 07:53
--- NOTE | 2020-03-07 10:55 | PCM.SN.2 ---
- Free Text/Narrative Note: Consent done. 0907 Time out done, 0907 patient positioned. Epidural done with sterile technique. Patient in sitting position. Back prepped with chlorhexidine, and draped. 1% lidocaine for skin infiltration, 3ml at l3-l4. 17 gauge touhy mane with air at 6 cm, catheter threaded at 14 cm. no paresthesias or pain. catheter aspiration negative for heme or csf. difficulty giving test dose, suspect equipment malfunction. 2 attempts. by me, called Dr. Lorenzo for assistance. Dr. Lorenzo arrived at 0940. replaced cap, pulled epidural catheter back and several times and unable to push local anesthetic. epidural catheter removed with intact tip, and replaced. 17 gauge touhy mane with air at 6 cm, catheter secured at 14 cm. Test dose 0955 negative with 1.5% lidocaine 3 ml, 0958 catheter secured. 1004 0.2% Ropivacaine 6ml loading dose given. patient tolerated procedure well, and maintained communication throughout the entire procedure.
[2020-03-07] MEDS ORDERED: Ibuprofen 800 MG Tab PO PRN (11:58)
[2020-03-07] MEDS ORDERED: Docusate Sodium 100 MG Cap PO PRN (11:58)
[2020-03-07] MEDS ORDERED: Bisacodyl 10 MG Supp RECTAL PRN (11:58)
[2020-03-07] MEDS ORDERED: Witch Hazel Medicated Pads 40/Jar TOP PRN (11:58)
[2020-03-07] MEDS ORDERED: Benzocaine/Menthol 20%-0.5% Spray 78 GM Cannister TOP PRN (11:58)
[2020-03-07] MEDS ORDERED: Acetaminophen 500 MG Tab PO PRN ×2 (11:58)
[2020-03-07] MEDS ORDERED: Ibuprofen 400 MG Tab PO PRN (11:58)
[2020-03-07] MEDS ORDERED: Lanolin 100% Cream 7 GM Tube TOP PRN (11:58)
[2020-03-07] MEDS ORDERED: oxyCODONE 5 MG Tab PO PRN (11:58)
--- NOTE | 2020-03-07 12:02 | PCM.DEL ---
L & D Note - General Info Date of Service: 03/07/20 - Delivery Note Labor: Spontaneous Delivery Outcome: Livebirth Delivery Method: Spontaneous Vaginal Delivery-Single Presentation: Right Occiput Anterior (TARAN) Nuchal Cord: Present Anesthesia Type: Epidural Amniotic Fluid Description: Clear Episiotomy Type: None Laceration: None Placenta: Intact Estimated Blood Loss: 300 Resuscitation Needed: No Score 1 min: 7 Score 5 min: 9 Delivery Comments (Free Text/Narrative):: Live female delivered at 1127 , 7/9 weight 3360g - General Info Date of Service: 03/07/20 - Patient Data Weight - Most Recent: 63.503 kg Lab Results Last 24 Hours: Laboratory Results - last 24 hr 03/07/20 03/07/20 03/07/20 Range/Units 06:25 06:25 06:35 WBC 7.82 (4.0-11.0) K/uL RBC 4.53 (4.30-5.90) M/uL Hgb 13.2 (12.0-16.0) g/dL Hct 39.6 (36.0-46.0) % MCV 87.4 (80.0-98.0) fL MCH 29.1 (27.0-32.0) pg MCHC 33.3 (31.0-37.0) g/dL RDW Std Deviation 66.4 H (28.0-62.0) fl RDW Coeff of Shantanu 21 H (11.0-15.0) % Plt Count 150 (150-400) K/uL MPV 10.30 (7.40-12.00) fL Nucleated RBC % 0.0 /100WBC Nucleated RBCs # 0 K/uL SARS-CoV-2 RNA (DHEERAJ) NEGATIVE (NEGATIVE) Blood Type O POSITIVE Antibody Screen NEGATIVE Med Orders - Current: Current Medications Butorphanol Tartrate (Stadol) 1 mg IVPUSH Q1H PRN PRN Reason: Pain Carboprost Tromethamine (Hemabate Ds) 250 mcg IM ASDIRECTED PRN PRN Reason: Post Hemorrhage Oxytocin/Sodium Chloride (Oxytocin 30 Unit/500 Ml-Ns) 30 unit in 500 mls @ 999 mls/hr IV TITRATE NITA Tranexamic Acid 1,000 mg/ (Sodium Chloride) 110 mls @ 660 mls/hr IV ONETIME PRN PRN Reason: Bleeding Lactated Ringer's (Ringers, Lactated) 1,000 mls @ 150 mls/hr IV ASDIRECTED NITA Last Infusion: 03/07/20 08:08 Dose: 150 mls/hr Documented by: Lidocaine HCl (Xylocaine 1%) 50 ml INJECT ONETIME PRN PRN Reason: Laceration repair Methylergonovine Maleate (Methergine) 0.2 mg IM ASDIRECTED PRN PRN Reason: Post Hemorrhage Misoprostol (Cytotec) 200 mcg PO ONETIME PRN PRN Reason: Post Hemorrhage Nalbuphine HCl (Nubain) 10 mg IVPUSH Q1H PRN PRN Reason: Pain (severe 7-10) Sodium Chloride (Saline Flush) 10 ml FLUSH ASDIRECTED PRN PRN Reason: Keep Vein Open Sodium Chloride (Saline Flush) 2.5 ml FLUSH ASDIRECTED PRN PRN Reason: Keep Vein Open Sodium Chloride (Normal Saline) 10 ml IV ASDIRECTED PRN PRN Reason: IV Use Sterile Water (Sterile Water For Irrigation) 1,000 ml IRR ASDIRECTED PRN PRN Reason: delivery Discontinued Medications Ropivacaine (Naropin 0.2%) Confirm Administered Dose 100 mls @ as directed .ROUTE .[facility]-MED ONE Stop: 03/07/20 07:53 Last Admin: 03/07/20 11:03 Dose: Not Given Documented by: - Problem List & Annotations (1) Vaginal delivery SNOMED Code(s): 800867860 Code(s): O80 - ENCOUNTER FOR FULL-TERM UNCOMPLICATED DELIVERY Status: Acute - Problem List Review Problem List Initiated/Reviewed/Updated: Yes - My Orders Last 24 Hours: My Active Orders 03/07/20 11:58 Acetaminophen [Tylenol Extra Strength] 1,000 mg PO Q4H PRN Acetaminophen [Tylenol Extra Strength] 500 mg PO Q4H PRN Benzocaine/Menthol [Dermoplast Pain Relief 20%-0.5% [place]] 78 gm TOP ASDIRECTED PRN Docusate Sodium [Colace] 100 mg PO BID PRN Ibuprofen [Motrin] 400 mg PO Q4H PRN Ibuprofen [Motrin] 800 mg PO Q6H PRN Lanolin [Lansinoh HPA] See Dose Instructions TOP ASDIRECTED PRN bisacodyL [Dulcolax] 10 mg RECTAL ONETIME PRN oxyCODONE 5 mg PO Q2H PRN witch Sathya [Tucks] 1 pad TOP ASDIRECTED PRN Resuscitation Status Routine 03/07/20 11:59 Patient Status [ADT] Routine May Shower [RC] ASDIRECTED Up ad Peyton [RC] ASDIRECTED Vital Signs [RC] PER UNIT ROUTINE Assess Lochia [WOMSER] Per Unit Routine Assess Uterine Involution [WOMSER] Per Unit Routine Peripheral IV Discontinue [OM.PC] Routine 03/08/20 05:11 HEMOGLOBIN/HEMATOCRIT,HH [HEME] Timed
--- NOTE | 2020-03-08 07:17 | OR ---
SURGEON: DARWIN CHIN DATE OF PROCEDURE: 03/07/2020 PREOPERATIVE DIAGNOSES: A 35-year-old, G5, P2-0-2-2 at 39 weeks and 1 day, admitted in active labor. POSTOPERATIVE DIAGNOSES: A 35-year-old, G5, P2-0-2-2 at 39 weeks and 1 day, admitted in active labor. PROCEDURE: Normal spontaneous vaginal delivery. ANESTHESIA: Epidural. ESTIMATED BLOOD LOSS: 300. INTRAVENOUS FLUIDS: Pitocin running. NOTES AND FINDINGS: A live female delivered at 11:27, scores are 7 and 9, weight is pending. BRIEF HISTORY ABOUT THE PATIENT: She is a 35-year-old G5, P2-0-2-2 at 39 weeks and 1 day; came in complaining of contractions. She was 7 cm dilated. She was requesting epidural, which she got after which SROM'd on her own. She became fully dilated. DESCRIPTION OF PROCEDURE: The patient being fully dilated, she was encouraged to push. With good pushing effort, she delivered the head, subsequently by the anterior and posterior shoulders. Body of the was delivered. Infant was placed on maternal abdomen. Delayed cord clamping was observed. Cord blood gases were obtained. Placenta was delivered via controlled cord traction. Perineum was inspected, noted to be intact. The patient was left in Labor and Delivery room in stable condition. Placenta had a three-vessel cord. There was cord around the neck, that was reduced. ABA LANCASTER /[id number] LYDIA
[2020-03-08 07:37] VITALS: BP 115/67; PULSE 81
--- NOTE | 2020-03-08 09:17 | PCM.PNPP ---
- General Info Date of Service: 03/08/20 Functional Status: Reports: Pain Controlled, Tolerating Diet, Ambulating, Urinating - Review of Systems General: Reports: No Symptoms HEENT: Reports: No Symptoms Pulmonary: Reports: No Symptoms Cardiovascular: Reports: No Symptoms Gastrointestinal: Reports: No Symptoms Genitourinary: Reports: No Symptoms Musculoskeletal: Reports: No Symptoms Skin: Reports: No Symptoms Neurological: Reports: No Symptoms Psychiatric: Reports: No Symptoms - General Info Date of Service: 03/08/20 - Patient Data Vital Signs - Most Recent: Last Vital Signs Temp 36.4 C 03/08/20 07:36 Pulse 81 03/08/20 07:36 Resp 14 03/08/20 07:36 BP 115/67 03/08/20 07:36 Pulse Ox 100 03/08/20 07:36 Weight - Most Recent: 63.503 kg Lab Results - Last 24 Hours: Laboratory Results - last 24 hr 03/07/20 03/08/20 Range/Units 11:22 04:40 Hgb 11.5 L (12.0-16.0) g/dL Hct 35.1 L (36.0-46.0) % Cord ABG pH 7.191 (7.18-7.38) Cord ABG Base Excess -7 (-10--2) Cord VBG pH 7.387 (7.25-7.45) Cord VBG Base Excess -3 (-10--2) Med Orders - Current: Current Medications Acetaminophen (Tylenol Extra Strength) 500 mg PO Q4H PRN PRN Reason: Pain Acetaminophen (Tylenol Extra Strength) 1,000 mg PO Q4H PRN PRN Reason: Pain Benzocaine/Menthol (Dermoplast Pain Relief 20%-0.5% [place]) 78 gm TOP ASDIRECTED PRN PRN Reason: Perineal Comfort Measure Bisacodyl (Dulcolax) 10 mg RECTAL ONETIME PRN PRN Reason: Constipation Butorphanol Tartrate (Stadol) 1 mg IVPUSH Q1H PRN PRN Reason: Pain Carboprost Tromethamine (Hemabate Ds) 250 mcg IM ASDIRECTED PRN PRN Reason: Post Hemorrhage Docusate Sodium (Colace) 100 mg PO BID PRN PRN Reason: Constipation Emollient Ointment (Lansinoh Hpa) 0 gm TOP ASDIRECTED PRN PRN Reason: Sore Nipples Last Admin: 03/08/20 08:17 Dose: 7 gram Documented by: Oxytocin/Sodium Chloride (Oxytocin 30 Unit/500 Ml-Ns) 30 unit in 500 mls @ 999 mls/hr IV TITRATE [facility] Last Admin: 03/07/20 11:28 Dose: 999 mls/hr Documented by: Tranexamic Acid 1,000 mg/ (Sodium Chloride) 110 mls @ 660 mls/hr IV ONETIME PRN PRN Reason: Bleeding Lactated Ringer's (Ringers, Lactated) 1,000 mls @ 150 mls/hr IV ASDIRECTED [facility] Last Infusion: 03/07/20 08:08 Dose: 150 mls/hr Documented by: Ibuprofen (Motrin) 400 mg PO Q4H PRN PRN Reason: Pain Ibuprofen (Motrin) 800 mg PO Q6H PRN PRN Reason: Pain Lidocaine HCl (Xylocaine 1%) 50 ml INJECT ONETIME PRN PRN Reason: Laceration repair Methylergonovine Maleate (Methergine) 0.2 mg IM ASDIRECTED PRN PRN Reason: Post Hemorrhage Misoprostol (Cytotec) 200 mcg PO ONETIME PRN PRN Reason: Post Hemorrhage Nalbuphine HCl (Nubain) 10 mg IVPUSH Q1H PRN PRN Reason: Pain (severe 7-10) Oxycodone HCl (Oxycodone) 5 mg PO Q2H PRN PRN Reason: Pain Sodium Chloride (Saline Flush) 10 ml FLUSH ASDIRECTED PRN PRN Reason: Keep Vein Open Sodium Chloride (Saline Flush) 2.5 ml FLUSH ASDIRECTED PRN PRN Reason: Keep Vein Open Sodium Chloride (Normal Saline) 10 ml IV ASDIRECTED PRN PRN Reason: IV Use Sterile Water (Sterile Water For Irrigation) 1,000 ml IRR ASDIRECTED PRN PRN Reason: delivery Witch Sathya (Tucks) 1 pad TOP ASDIRECTED PRN PRN Reason: comfort care Discontinued Medications Ropivacaine (Naropin 0.2%) Confirm Administered Dose 100 mls @ as directed .ROUTE .STK-MED ONE Stop: 03/07/20 07:53 Last Admin: 03/07/20 11:03 Dose: Not Given Documented by: - Infant Interaction Support Person: - Recovery Exam Fundal Tone: Firm Fundal Level: 2 Fingerbreadths Below Umbilicus Fundal Placement: Midline Lochia Amount: Scant Lochia Color: Rubra/Red Perineum Description: Intact, Minimal Bruising/Swelling Bladder Status: Voiding Urinary Elimination: Voided - Exam General: Alert HEENT: Pupils Equal Neck: Supple Lungs: Clear to Auscultation Cardiovascular: Regular Rate, Regular Rhythm GI/Abdominal Exam: Normal Bowel Sounds Extremities: Normal Inspection - Problem List & Annotations (1) Vaginal delivery SNOMED Code(s): 311842502 Code(s): O80 - ENCOUNTER FOR FULL-TERM UNCOMPLICATED DELIVERY Status: Acute Current Visit: No - Problem List Review Problem List Initiated/Reviewed/Updated: Yes - My Orders Last 24 Hours: My Active Orders 03/07/20 Lunch Regular Diet [DIET] 03/07/20 11:58 Acetaminophen [Tylenol Extra Strength] 1,000 mg PO Q4H PRN Acetaminophen [Tylenol Extra Strength] 500 mg PO Q4H PRN Benzocaine/Menthol [Dermoplast Pain Relief 20%-0.5% [place]] 78 gm TOP ASDIRECTED PRN Docusate Sodium [Colace] 100 mg PO BID PRN Ibuprofen [Motrin] 400 mg PO Q4H PRN Ibuprofen [Motrin] 800 mg PO Q6H PRN Lanolin [Lansinoh HPA] See Dose Instructions TOP ASDIRECTED PRN bisacodyL [Dulcolax] 10 mg RECTAL ONETIME PRN oxyCODONE 5 mg PO Q2H PRN witch Sathya [Tucks] 1 pad TOP ASDIRECTED PRN Resuscitation Status Routine 03/07/20 11:59 Patient Status [ADT] Routine May Shower [RC] ASDIRECTED Up ad Peyton [RC] ASDIRECTED Vital Signs [RC] PER UNIT ROUTINE Assess Lochia [WOMSER] Per Unit Routine Assess Uterine Involution [WOMSER] Per Unit Routine Peripheral IV Discontinue [OM.PC] Routine - Assessment Assessment:: 35yo P3 s/p PPD1 , ambulating , and tolerating regular diet - Plan Plan:: Routine Discharge home
--- NOTE | 2020-03-08 09:54 | PCM48HPAN ---
Post Anesthesia Note - EVALUATION WITHIN 48HRS OF ANESTHETIC Vital Signs in Normal Range: Yes Patient Participated in Evaluation: Yes Respiratory Function Stable: Yes Airway Patent: Yes Cardiovascular Function Stable: Yes Hydration Status Stable: Yes Pain Control Satisfactory: Yes Nausea and Vomiting Control Satisfactory: Yes Mental Status Recovered: Yes Vital Signs: Last Vital Signs Temp 36.4 C 03/08/20 07:36 Pulse 81 03/08/20 07:36 Resp 14 03/08/20 07:36 BP 115/67 03/08/20 07:36 Pulse Ox 100 03/08/20 07:36 - COMMENTS/OBSERVATIONS Free Text/Narrative:: Sitting up in bed. Denies any complaints except a sore back.
== END 2020-03-08 15:51 | disposition home or self-care (01) | DRG 560 ==
LOC: MW.OBCHECK 06:03 → MW.OB 06:04 → MW.OBCHECK 06:39 → OBSVTOIN 11:27 → MW.OB 16:34
PROVIDERS: ADMIT Obstetrics & Gynecology; ATTEND Obstetrics & Gynecology
PROC: 10E0XZZ Delivery of Products of Conception, External Approach (ICD-10-PCS; principal; 2020-03-07)
PROC: 3E0R3BZ Introduction of Anesthetic Agent into Spinal Canal, Percutaneous Approach (ICD-10-PCS; 2020-03-07)
PROC: 00HU33Z Insertion of Infusion Device into Spinal Canal, Percutaneous Approach (ICD-10-PCS; 2020-03-07)
DX: O69.81X0 Labor and delivery complicated by cord around neck, without compression, not applicable or unspecified (principal); Z37.0 Single live birth; Z3A.39 39 weeks gestation of pregnancy; Z20.828 Contact with and (suspected) exposure to other viral communicable diseases
CPT/HCPCS: 01967; 36415; 51702; 59025; 59409; 82803; 85014; 85018; 85027; 86592; 86850; 86900; 86901; A9270-GY; J2590; J7120; U0002